=== PATIENT | male | born 1975 | race Caucasian/White ===

== ENCOUNTER 2025-08-06 10:41 | Emergency (ER) | payer OTHER ==
[2025-08-06 11:32] LABS: BASOPHILS ABSOLUTE AUTO 0.02 K/uL (0.00-0.20); BASOPHILS PERCENT AUTO 0.4 % (0.0-2.0); EOSINOPHILS ABSOLUTE AUTO 0.07 K/uL (0.00-0.50); EOSINOPHILS PERCENT AUTO 1.3 % (0.0-5.0); IMMATURE GRAN ABSOLUTE AUTO 0.01 10^3/uL (0.00-0.04); IMMATURE GRAN PERCENT AUTO 0.2 % (0.0-0.4); LYMPHOCYTES ABSOLUTE AUTO 1.31 K/uL (0.50-3.50); LYMPHOCYTES PERCENT AUTO 23.9 % (10.0-50.0); MONOCYTES ABSOLUTE AUTO 0.39 K/uL (0.00-1.00); MONOCYTES PERCENT AUTO 7.1 % (2.0-14.0); NEUTROPHILS ABSOLUTE AUTO 3.67 K/uL (1.40-7.00); NEUTROPHILS PERCENT AUTO 67.1 % (45.0-80.0); RED BLOOD CELL COUNT 5.61 M/uL (4.33-5.41); RED CELL DISTRIBUTION WIDTH 13.2 % (11.2-14.1); WHITE BLOOD CELL COUNT,WBC 5.5 K/uL (4.0-10.2)
[2025-08-06 11:47] LABS: INR 1.1 (0.9-1.1)
[2025-08-06 11:48] LABS: PLATELET COUNT,PLT 67 K/uL (150-350)
[2025-08-06 12:09] LABS: PTT,PARTIAL THROMBOPLSTIN TIME 28.0 SEC (23.8-34.4)
== END 2025-08-06 13:05 | disposition home or self-care (01) ==
LOC: LL.ED 10:41
DX: K94.01 Colostomy hemorrhage (principal); Z91.048 Other nonmedicinal substance allergy status
CPT/HCPCS: 36415; 85025; 85610; 85730; 99283

== ENCOUNTER 2025-09-19 11:27 | Emergency (ER) | payer OTHER ==
[2025-09-19 11:41] LABS: BASOPHILS ABSOLUTE AUTO 0.03 K/uL (0.00-0.20); BASOPHILS PERCENT AUTO 0.3 % (0.0-2.0); EOSINOPHILS ABSOLUTE AUTO 0.22 K/uL (0.00-0.50); EOSINOPHILS PERCENT AUTO 2.1 % (0.0-5.0); IMMATURE GRAN ABSOLUTE AUTO 0.05 10^3/uL (0.00-0.04); IMMATURE GRAN PERCENT AUTO 0.5 % (0.0-0.4); LYMPHOCYTES ABSOLUTE AUTO 1.14 K/uL (0.50-3.50); LYMPHOCYTES PERCENT AUTO 11.0 % (10.0-50.0); MONOCYTES ABSOLUTE AUTO 1.03 K/uL (0.00-1.00); MONOCYTES PERCENT AUTO 9.9 % (2.0-14.0); NEUTROPHILS ABSOLUTE AUTO 7.89 K/uL (1.40-7.00); NEUTROPHILS PERCENT AUTO 76.2 % (45.0-80.0); PLATELET COUNT,PLT 110 K/uL (150-350); RED BLOOD CELL COUNT 5.29 M/uL (4.33-5.41); RED CELL DISTRIBUTION WIDTH 13.5 % (11.2-14.1); WHITE BLOOD CELL COUNT,WBC 10.4 K/uL (4.0-10.2)
[2025-09-19 12:01] LABS: ALANINE AMINOTRANSFERASE,ALT 35.0 U/L (12-78); ASPARTATE AMNIOTRANSFERASE,AST 23.0 U/L (15-37); BILIRUBIN TOTAL 1.7 mg/dL (0.2-1.0); BLOOD UREA NITROGEN,BUN 24.0 mg/dL (7-18); CARBON DIOXIDE,CO2 28.5 mmol/L (21.0-32.0); CHLORIDE,CL 105.0 mmol/L (98-107); CREATININE 1.12 mg/dL (0.51-1.17); EST CRCL DRUG DOSING (CG) 92.76 mL/min; ESTIMATED GFR 81.0 mL/min (>=60); GLUCOSE RANDOM 130.0 mg/dL (70-99); POTASSIUM,K 3.4 mmol/L (3.5-5.1); PROTEIN TOTAL,TP 7.4 g/dL (6.4-8.2); SODIUM,NA 145.0 mmol/L (136-145)
[2025-09-19 12:03] LABS: INR 1.2 (0.9-1.1); PTT,PARTIAL THROMBOPLSTIN TIME 29.1 SEC (23.8-34.4)
[2025-09-19] MEDS: Iopamidol 612 MG/ML 100 ML Bottle IVPUSH ONE (13:28)
[2025-09-19] MEDS ORDERED: Sodium Chloride 0.9% 10 ML Syringe FLUSH PRN (14:42)
== END 2025-09-19 16:21 ==
LOC: LL.ED 11:27
DX: K56.7 Ileus, unspecified (principal); Z98.890 Other specified postprocedural states; Z79.899 Other long term (current) drug therapy; Z88.8 Allergy status to other drugs, medicaments and biological substances
CPT/HCPCS: 36415; 74178; 80053; 83605; 85025; 85610; 85730; 99284; 99285; J7030; Q9967